=== PATIENT | male | born 1985 | race Caucasian/White ===

== ENCOUNTER 2017-04-08 22:21 | Emergency (ER) | payer OTHER ==
[~2017-04-08] VITALS: Ht 172.7 cm; Wt 70.0 kg
[2017-04-08 23:05] LABS: HEMATOCRIT 42.2 % (38.0-50.0); MCH 33.1 PG (29.0-34.0); MCHC 33.9 G/DL (30.0-36.0); MCV 97.7 FL (86-99); MEAN PLAT.VOLUME 10.4 uM^3 (9.0-12.4); PLATELET COUNT 178 K/uL (156-360); RBC DIS.WIDTH-CV 12.3 % (11.8-14.6); RBC DIS.WIDTH-SD 44.1 % (39-53); RED BLOOD COUNT 4.32 M/uL (4.00-5.50); WHITE BLOOD COUNT 5.7 K/uL (4.1-10.2)
[2017-04-08 23:15] LABS: CHLORIDE 104 mEq/L (99-109); POTASSIUM 3.7 mEq/L (3.7-5.4); SODIUM 137 mEq/L (136-147)
[2017-04-08 23:16] LABS: GLUCOSE 82 mg/dL (70-99)
[2017-04-08 23:18] LABS: ANION GAP 12 MEQ/L (2-14)
[2017-04-08 23:21] LABS: UREA NITROGEN (BUN) 12 mg/dL (9-23)
[2017-04-08 23:27] LABS: GFR ESTIMATE (CALCULATED) > 59 mL/min/
[2017-04-09 01:49] LABS: ADD MIUA? NO; BILIRUBIN NEGATIVE; BLOOD NEGATIVE; COLOR YELLOW ((YELLOW)); GLUCOSE (STRIP) NEGATIVE; KETONES 5; LEUKOCYTES NEGATIVE; NITRITE NEGATIVE; PROTEIN (STRIP) NEGATIVE; UROBILINOGEN 0.2 MG/DL (0.2-1.0)
[2017-04-09 01:50] VITALS: BP 122/75
[2017-04-09 01:55] LABS: UCUL ADDED? NO
[2017-04-09 02:07] LABS: SPECIFIC GRAVITY 1.057 (1.000-1.030)
[2017-04-10 14:37] LABS: CHLAMYDIA TRACHOMATIS NEGATIVE; NEISSERIA GONORRHOEAE NEGATIVE
== END 2017-04-09 01:51 ==
LOC: EME 22:21
PROVIDERS: Emergency Medicine
DX: S30.811A Abrasion of abdominal wall, initial encounter (principal); S10.91XA Abrasion of unspecified part of neck, initial encounter; T74.21XA Adult sexual abuse, confirmed, initial encounter; Y92.143 Cell of prison as the place of occurrence of the external cause; M79.1 Myalgia; K62.5 Hemorrhage of anus and rectum; M54.2 Cervicalgia; R42 Dizziness and giddiness
CPT/HCPCS: 70498; 80048; 81003; 85027; 87491; 87591; 99281; 99285